=== PATIENT | male | born 1955 | race Two or more races ===

== ENCOUNTER 2021-01-16 06:30 | Day surgery (SDC) | payer OTHER ==
[~2021-01-16 06:30] MED LIST: ELIQUIS5 MG PO; JANUMET XR 1001 EACH PO; JARDIANCE10 MG PO; LIPITOR20 MG PO; PACERONE200 MG PO; SYNTHROID50 MCG PO; TOPROL XL200 MG PO; VASOTEC2.5 MG PO; ZYLOPRIM300 MG PO
== END 2021-01-16 14:20 | disposition home or self-care (01) ==
LOC: CIR.AMB 06:30 → ADM 09:15 → CIR.AMB 14:20
PROVIDERS: ATTEND Orthopaedic Surgery Hand Surgery
DX: S62.360A Nondisplaced fracture of neck of second metacarpal bone, right hand, initial encounter for closed fracture (principal); Z20.822 Contact with and (suspected) exposure to COVID-19